=== PATIENT | male | born 1935 | race Caucasian/White ===

== ENCOUNTER 2021-10-21 16:09 | Emergency (ER) | payer MEDICARE, OTHER ==
[~2021-10-21] VITALS: Ht 180.3 cm; Wt 83.9 kg
[2021-10-21] MEDS ORDERED: TAMSULOSIN HCL0.4 M1 PO (16:50)
[2021-10-21] MEDS ORDERED: HYDCHL12.5 PO (16:50)
[2021-10-21] MEDS ORDERED: ATOR10 PO (16:50)
[2021-10-21] MEDS ORDERED: FINA5 PO (16:51)
[2021-10-21] MEDS ORDERED: TRAM50 PO (16:51)
[2021-10-21] MEDS ORDERED: Bisoprolol Fumar5 MG PO (16:52)
== END 2021-10-21 17:59 | disposition home or self-care (01) ==
LOC: ER 16:09
DX: S63.501A Unspecified sprain of right wrist, initial encounter (principal); S50.11XA Contusion of right forearm, initial encounter; E11.9 Type 2 diabetes mellitus without complications; W19.XXXA Unspecified fall, initial encounter
CPT/HCPCS: 73090; 99283-25

== ENCOUNTER → 2022-08-20 | Outpatient (CLI) | payer MEDICARE, OTHER ==
[~2022-08-20] MED LIST: ATOR10 PO; Bisoprolol Fumar5 MG PO; FINA5 PO; HYDCHL12.5 PO; TAMSULOSIN HCL0.4 M1 PO; TRAM50 PO
== END | disposition home or self-care (01) ==
LOC: LAB SHORT 09:21 → LAB 09:21
DX: L03.811 Cellulitis of head [any part, except face] (principal)
CPT/HCPCS: 87070; 87075; 87077; 87186; 87205

== ENCOUNTER 2022-08-27 00:36 | Day surgery (SDC) | payer MEDICARE, OTHER | END 2022-08-27 22:47 | disposition home or self-care (01) | LOC: WOUND 00:36 | DX: C44.42 Squamous cell carcinoma of skin of scalp and neck (principal); E11.9 Type 2 diabetes mellitus without complications | CPT/HCPCS: 11102; A9270; G0463 ==

== ENCOUNTER 2022-09-15 06:02 | Day surgery (SDC) | payer MEDICARE, OTHER | END 2022-09-15 22:59 | disposition home or self-care (01) | LOC: WOUND 06:02 | DX: S01.9 Open wound of unspecified part of head (principal); C44.42 Squamous cell carcinoma of skin of scalp and neck; E11.9 Type 2 diabetes mellitus without complications | CPT/HCPCS: A9270; G0463 ==

== ENCOUNTER 2022-09-22 01:49 | Day surgery (SDC) | payer MEDICARE, OTHER | END 2022-09-22 22:50 | disposition home or self-care (01) | LOC: WOUND 01:49 | DX: S01.80XA Unspecified open wound of other part of head, initial encounter (principal); X58.XXXA Exposure to other specified factors, initial encounter; C44.42 Squamous cell carcinoma of skin of scalp and neck | CPT/HCPCS: G0463 ==

== ENCOUNTER 2022-10-08 12:44 | Day surgery (SDC) | payer MEDICARE, OTHER | END 2022-10-08 23:29 | disposition home or self-care (01) | LOC: WOUND 12:44 | DX: C44.42 Squamous cell carcinoma of skin of scalp and neck (principal); N18.9 Chronic kidney disease, unspecified; S01.9 Open wound of unspecified part of head; X58.XXXD Exposure to other specified factors, subsequent encounter | CPT/HCPCS: A9270; G0463 ==

== ENCOUNTER → 2023-02-21 | Outpatient (CLI) | payer MEDICARE, OTHER | END | disposition home or self-care (01) | LOC: LAB HH 10:15 | DX: C44.42 Squamous cell carcinoma of skin of scalp and neck (principal); S01.01XD Laceration without foreign body of scalp, subsequent encounter | CPT/HCPCS: 87070; 87075; 87077; 87147; 87186; 87205 ==

== ENCOUNTER → 2023-05-19 | Outpatient (CLI) | payer MEDICARE, OTHER ==
[2023-05-19 09:13] LABS: BASOPHILS ABSOLUTE AUTO 0.05 K/mm3 (0.00-0.23); BASOPHILS PERCENT AUTO 1 % (0-2); EOSINOPHILS ABSOLUTE AUTO 0.34 K/mm3 (0.00-0.68); EOSINOPHILS PERCENT AUTO 4 % (0-6); Hematocrit 39.1 % (37.0-53.0); Hemoglobin 13.1 g/dL (13.5-17.5); IMMATURE GRAN ABSOLUTE AUTO 0.02 K/mm3 (0.00-0.10); IMMATURE GRAN PERCENT AUTO 0 % (0-1); LYMPHOCYTES ABSOLUTE AUTO 1.24 K/mm3 (0.84-5.20); LYMPHOCYTES PERCENT AUTO 14 % (21-46); MONOCYTES ABSOLUTE AUTO 0.72 K/mm3 (0.16-1.47); MONOCYTES PERCENT AUTO 8 % (4-13); Mean Corpuscular HGB 30.6 pg (26.0-34.0); Mean Corpuscular HGB Conc 33.5 g/dL (31.5-36.5); Mean Corpuscular Volume 91 fL (80-100); Mean Platelet Volume 9.9 fL (9.1-12.4); NEUTROPHILS PERCENT AUTO 74 % (41-73); Platelet Count 273 K/mm3 (150-400); RDW Coefficient Variation 12.9 % (11.7-14.2); RDW Standard Deviation 42.8 fL (35.1-46.3); Red Blood Cell Count 4.28 M/mm3 (4.30-5.90); White Blood Cell Count 9.17 K/mm3 (4.00-11.30)
[2023-05-19 09:31] LABS: Albumin, Blood 3.5 g/dL (3.4-5.0); Albumin/Globulin Ratio 1.2 (0.8-1.8); Bilirubin, Total 0.6 mg/dL (0.1-1.0); Bun/Creatinine Ratio 18.2 (12.0-20.0); Calcium, Blood 9.3 mg/dL (8.5-10.1); Creatinine, Blood 1.59 mg/dL (0.60-1.20); Potassium, Blood 4.7 mmol/L (3.5-5.5); Total Protein, Blood 6.5 g/dL (6.4-8.2)
== END ==
LOC: LAB SHORT 08:40 → LAB 08:40
PROVIDERS: Internal Medicine Hematology & Oncology
DX: C44.92 Squamous cell carcinoma of skin, unspecified (principal)
CPT/HCPCS: 80053; 85025

== ENCOUNTER → 2023-08-11 | Outpatient (CLI) | payer MEDICARE, OTHER ==
[2023-08-11 08:42] LABS: BASOPHILS ABSOLUTE AUTO 0.05 K/mm3 (0.00-0.23); BASOPHILS PERCENT AUTO 1 % (0-2); EOSINOPHILS ABSOLUTE AUTO 0.31 K/mm3 (0.00-0.68); EOSINOPHILS PERCENT AUTO 4 % (0-6); Hematocrit 40.3 % (37.0-53.0); Hemoglobin 13.5 g/dL (13.5-17.5); IMMATURE GRAN ABSOLUTE AUTO 0.01 K/mm3 (0.00-0.10); IMMATURE GRAN PERCENT AUTO 0 % (0-1); LYMPHOCYTES ABSOLUTE AUTO 1.29 K/mm3 (0.84-5.20); LYMPHOCYTES PERCENT AUTO 18 % (21-46); MONOCYTES ABSOLUTE AUTO 0.68 K/mm3 (0.16-1.47); MONOCYTES PERCENT AUTO 9 % (4-13); Mean Corpuscular HGB 30.8 pg (26.0-34.0); Mean Corpuscular HGB Conc 33.5 g/dL (31.5-36.5); Mean Corpuscular Volume 92 fL (80-100); Mean Platelet Volume 10.2 fL (9.1-12.4); NEUTROPHILS ABSOLUTE AUTO 5.05 K/mm3 (1.96-9.15); NEUTROPHILS PERCENT AUTO 68 % (41-73); Platelet Count 281 K/mm3 (150-400); RDW Coefficient Variation 12.5 % (11.7-14.2); RDW Standard Deviation 42.4 fL (35.1-46.3); Red Blood Cell Count 4.38 M/mm3 (4.30-5.90); White Blood Cell Count 7.39 K/mm3 (4.00-11.30)
[2023-08-11 09:02] LABS: Albumin, Blood 3.6 g/dL (3.4-5.0); Albumin/Globulin Ratio 1.1 (0.8-1.8); Bilirubin, Total 0.8 mg/dL (0.1-1.0); Bun/Creatinine Ratio 14.6 (12.0-20.0); Calcium, Blood 9.1 mg/dL (8.5-10.1); Creatinine, Blood 1.58 mg/dL (0.60-1.20); Globulin, Blood 3.2 g/dL (2.2-4.0); Potassium, Blood 4.4 mmol/L (3.5-5.5); Total Protein, Blood 6.8 g/dL (6.4-8.2)
== END ==
LOC: LAB SHORT 08:12 → LAB 08:12
PROVIDERS: Internal Medicine Hematology & Oncology
DX: C44.92 Squamous cell carcinoma of skin, unspecified (principal)
CPT/HCPCS: 80053; 85025

== ENCOUNTER → 2023-08-31 | Outpatient (CLI) | payer MEDICARE, OTHER ==
[2023-08-31 08:21] LABS: BASOPHILS ABSOLUTE AUTO 0.06 K/mm3 (0.00-0.23); BASOPHILS PERCENT AUTO 1 % (0-2); EOSINOPHILS ABSOLUTE AUTO 0.48 K/mm3 (0.00-0.68); EOSINOPHILS PERCENT AUTO 6 % (0-6); Hematocrit 41.1 % (37.0-53.0); Hemoglobin 13.5 g/dL (13.5-17.5); IMMATURE GRAN ABSOLUTE AUTO 0.02 K/mm3 (0.00-0.10); IMMATURE GRAN PERCENT AUTO 0 % (0-1); LYMPHOCYTES ABSOLUTE AUTO 1.63 K/mm3 (0.84-5.20); LYMPHOCYTES PERCENT AUTO 21 % (21-46); MONOCYTES ABSOLUTE AUTO 0.71 K/mm3 (0.16-1.47); MONOCYTES PERCENT AUTO 9 % (4-13); Mean Corpuscular HGB 30.8 pg (26.0-34.0); Mean Corpuscular HGB Conc 32.8 g/dL (31.5-36.5); Mean Corpuscular Volume 94 fL (80-100); Mean Platelet Volume 10.4 fL (9.1-12.4); NEUTROPHILS ABSOLUTE AUTO 4.98 K/mm3 (1.96-9.15); NEUTROPHILS PERCENT AUTO 63 % (41-73); Platelet Count 311 K/mm3 (150-400); RDW Coefficient Variation 12.4 % (11.7-14.2); RDW Standard Deviation 42.5 fL (35.1-46.3); Red Blood Cell Count 4.39 M/mm3 (4.30-5.90); White Blood Cell Count 7.88 K/mm3 (4.00-11.30)
[2023-08-31 08:45] LABS: Albumin, Blood 3.5 g/dL (3.4-5.0); Bilirubin, Total 0.5 mg/dL (0.1-1.0); Bun/Creatinine Ratio 17.8 (12.0-20.0); Calcium, Blood 9.1 mg/dL (8.5-10.1); Creatinine, Blood 1.52 mg/dL (0.60-1.20); Globulin, Blood 3.5 g/dL (2.2-4.0); Potassium, Blood 4.5 mmol/L (3.5-5.5)
== END | disposition home or self-care (01) ==
LOC: LAB 07:40 → LAB SHORT 07:40
PROVIDERS: Internal Medicine Hematology & Oncology
DX: C44.92 Squamous cell carcinoma of skin, unspecified (principal)
CPT/HCPCS: 80053; 85025

== ENCOUNTER → 2023-11-03 | Outpatient (CLI) | payer MEDICARE, OTHER ==
[2023-11-03 11:48] LABS: BASOPHILS ABSOLUTE AUTO 0.06 K/mm3 (0.00-0.23); BASOPHILS PERCENT AUTO 1 % (0-2); EOSINOPHILS ABSOLUTE AUTO 0.49 K/mm3 (0.00-0.68); EOSINOPHILS PERCENT AUTO 7 % (0-6); Hematocrit 42.2 % (37.0-53.0); Hemoglobin 14.3 g/dL (13.5-17.5); IMMATURE GRAN ABSOLUTE AUTO 0.01 K/mm3 (0.00-0.10); IMMATURE GRAN PERCENT AUTO 0 % (0-1); LYMPHOCYTES PERCENT AUTO 14 % (21-46); MONOCYTES ABSOLUTE AUTO 0.54 K/mm3 (0.16-1.47); MONOCYTES PERCENT AUTO 7 % (4-13); Mean Corpuscular HGB Conc 33.9 g/dL (31.5-36.5); Mean Corpuscular Volume 91 fL (80-100); Mean Platelet Volume 10.6 fL (9.1-12.4); NEUTROPHILS ABSOLUTE AUTO 5.29 K/mm3 (1.96-9.15); NEUTROPHILS PERCENT AUTO 72 % (41-73); Platelet Count 289 K/mm3 (150-400); Red Blood Cell Count 4.62 M/mm3 (4.30-5.90); White Blood Cell Count 7.39 K/mm3 (4.00-11.30)
[2023-11-03 11:51] LABS: Albumin, Blood 3.6 g/dL (3.4-5.0); Albumin/Globulin Ratio 1.1 (0.8-1.8); Bilirubin, Total 0.9 mg/dL (0.1-1.0); Bun/Creatinine Ratio 17.6 (12.0-20.0); Calcium, Blood 9.6 mg/dL (8.5-10.1); Creatinine, Blood 1.31 mg/dL (0.60-1.20); Globulin, Blood 3.4 g/dL (2.2-4.0); Potassium, Blood 4.2 mmol/L (3.5-5.5)
== END ==
LOC: LAB 09:15 → LAB SHORT 09:15
PROVIDERS: Internal Medicine Hematology & Oncology
DX: C44.92 Squamous cell carcinoma of skin, unspecified (principal)
CPT/HCPCS: 80053; 85025

== ENCOUNTER 2024-02-08 03:06 | Day surgery (SDC) | payer MEDICARE, OTHER | END 2024-02-08 22:40 | disposition home or self-care (01) | LOC: WOUND 03:06 | DX: C44.92 Squamous cell carcinoma of skin, unspecified (principal); E11.9 Type 2 diabetes mellitus without complications | CPT/HCPCS: A6213; G0463 ==

== ENCOUNTER 2024-02-15 04:33 | Day surgery (SDC) | payer MEDICARE, OTHER | END 2024-02-15 23:11 | disposition home or self-care (01) | LOC: WOUND 04:33 | DX: C44.42 Squamous cell carcinoma of skin of scalp and neck (principal); E11.9 Type 2 diabetes mellitus without complications | CPT/HCPCS: A6213; G0463 ==

== ENCOUNTER 2024-04-06 03:15 | Day surgery (SDC) | payer MEDICARE, OTHER | END 2024-04-06 23:11 | disposition home or self-care (01) | LOC: WOUND 03:15 | DX: S01.80XD Unspecified open wound of other part of head, subsequent encounter (principal); C44.92 Squamous cell carcinoma of skin, unspecified; E11.9 Type 2 diabetes mellitus without complications; X58.XXXD Exposure to other specified factors, subsequent encounter | CPT/HCPCS: A6213; G0463 ==

== ENCOUNTER 2024-04-11 03:21 | Day surgery (SDC) | payer MEDICARE, OTHER | END 2024-04-11 23:03 | disposition home or self-care (01) | LOC: WOUND 03:21 | DX: C44.92 Squamous cell carcinoma of skin, unspecified (principal); E11.9 Type 2 diabetes mellitus without complications | CPT/HCPCS: A6213; G0463 ==

== ENCOUNTER 2024-04-18 02:26 | Day surgery (SDC) | payer MEDICARE, OTHER | END 2024-04-18 22:49 | disposition home or self-care (01) | LOC: WOUND 02:26 | DX: S01.80XD Unspecified open wound of other part of head, subsequent encounter (principal); E11.9 Type 2 diabetes mellitus without complications; C44.92 Squamous cell carcinoma of skin, unspecified; X58.XXXD Exposure to other specified factors, subsequent encounter | CPT/HCPCS: A6213; G0463 ==

== ENCOUNTER 2024-05-02 01:43 | Day surgery (SDC) | payer MEDICARE, OTHER | END 2024-05-03 05:14 | disposition home or self-care (01) | LOC: WOUND 01:43 | DX: C44.42 Squamous cell carcinoma of skin of scalp and neck (principal); L98.492 Non-pressure chronic ulcer of skin of other sites with fat layer exposed; E11.9 Type 2 diabetes mellitus without complications | CPT/HCPCS: A6213; G0463 ==

== ENCOUNTER 2024-05-09 02:51 | Day surgery (SDC) | payer MEDICARE, OTHER | END 2024-05-09 22:56 | disposition home or self-care (01) | LOC: WOUND 02:51 | DX: S01.80XD Unspecified open wound of other part of head, subsequent encounter (principal); E11.9 Type 2 diabetes mellitus without complications; C44.92 Squamous cell carcinoma of skin, unspecified | CPT/HCPCS: G0463 ==

== ENCOUNTER 2024-05-30 05:41 | Day surgery (SDC) | payer MEDICARE, OTHER | END 2024-05-30 23:08 | disposition home or self-care (01) | LOC: WOUND 05:41 | DX: L98.492 Non-pressure chronic ulcer of skin of other sites with fat layer exposed (principal); E11.9 Type 2 diabetes mellitus without complications; C44.92 Squamous cell carcinoma of skin, unspecified | CPT/HCPCS: G0463 ==

== ENCOUNTER 2024-06-13 04:22 | Day surgery (SDC) | payer MEDICARE, OTHER | END 2024-06-13 22:43 | disposition home or self-care (01) | LOC: WOUND 04:22 | DX: L98.492 Non-pressure chronic ulcer of skin of other sites with fat layer exposed (principal); C44.92 Squamous cell carcinoma of skin, unspecified | CPT/HCPCS: G0463 ==

== ENCOUNTER 2024-07-11 02:25 | Day surgery (SDC) | payer MEDICARE, OTHER | END 2024-07-11 23:13 | disposition home or self-care (01) | LOC: WOUND 02:25 | DX: C44.42 Squamous cell carcinoma of skin of scalp and neck (principal); L98.492 Non-pressure chronic ulcer of skin of other sites with fat layer exposed | CPT/HCPCS: G0463 ==

== ENCOUNTER 2024-08-01 01:53 | Day surgery (SDC) | payer MEDICARE, OTHER | END 2024-08-01 23:10 | disposition home or self-care (01) | LOC: WOUND 01:53 | DX: S01.80XD Unspecified open wound of other part of head, subsequent encounter (principal); E11.9 Type 2 diabetes mellitus without complications | CPT/HCPCS: G0463 ==

== ENCOUNTER 2024-08-15 03:26 | Day surgery (SDC) | payer MEDICARE, OTHER | END 2024-08-15 23:00 | disposition home or self-care (01) | LOC: WOUND 03:26 | DX: C44.42 Squamous cell carcinoma of skin of scalp and neck (principal); E11.622 Type 2 diabetes mellitus with other skin ulcer; L98.492 Non-pressure chronic ulcer of skin of other sites with fat layer exposed | CPT/HCPCS: G0463 ==

== ENCOUNTER 2024-08-22 05:03 | Day surgery (SDC) | payer MEDICARE, OTHER | END 2024-08-22 23:00 | disposition home or self-care (01) | LOC: WOUND 05:03 | DX: S01.00XD Unspecified open wound of scalp, subsequent encounter (principal); E11.9 Type 2 diabetes mellitus without complications | CPT/HCPCS: G0463 ==

== ENCOUNTER 2024-09-19 03:43 | Day surgery (SDC) | payer MEDICARE, OTHER | END 2024-09-19 23:00 | disposition home or self-care (01) | LOC: WOUND 03:43 | DX: L98.492 Non-pressure chronic ulcer of skin of other sites with fat layer exposed (principal); C44.92 Squamous cell carcinoma of skin, unspecified | CPT/HCPCS: G0463 ==

== ENCOUNTER 2024-09-26 05:44 | Day surgery (SDC) | payer MEDICARE, OTHER | END 2024-09-26 23:00 | disposition home or self-care (01) | LOC: WOUND 05:44 | DX: C44.42 Squamous cell carcinoma of skin of scalp and neck (principal); E11.9 Type 2 diabetes mellitus without complications | CPT/HCPCS: G0463 ==

== ENCOUNTER 2024-10-12 04:45 | Day surgery (SDC) | payer MEDICARE, OTHER | END 2024-10-12 23:00 | disposition home or self-care (01) | LOC: WOUND 04:45 | DX: C44.42 Squamous cell carcinoma of skin of scalp and neck (principal); E11.9 Type 2 diabetes mellitus without complications | CPT/HCPCS: G0463 ==

== ENCOUNTER 2024-10-17 01:21 | Day surgery (SDC) | payer MEDICARE, OTHER | END 2024-10-17 23:00 | disposition home or self-care (01) | LOC: WOUND 01:21 | DX: C44.42 Squamous cell carcinoma of skin of scalp and neck (principal); E11.9 Type 2 diabetes mellitus without complications | CPT/HCPCS: G0463 ==

== ENCOUNTER 2024-10-24 06:24 | Day surgery (SDC) | payer MEDICARE, OTHER | END 2024-10-24 22:52 | disposition home or self-care (01) | LOC: WOUND 06:24 | DX: C44.42 Squamous cell carcinoma of skin of scalp and neck (principal); E11.9 Type 2 diabetes mellitus without complications | CPT/HCPCS: G0463 ==

== ENCOUNTER 2024-10-31 05:27 | Day surgery (SDC) | payer MEDICARE, OTHER | END 2024-10-31 23:00 | disposition home or self-care (01) | LOC: WOUND 05:27 | DX: C44.92 Squamous cell carcinoma of skin, unspecified (principal); L98.492 Non-pressure chronic ulcer of skin of other sites with fat layer exposed | CPT/HCPCS: G0463 ==

== ENCOUNTER 2024-11-07 03:18 | Day surgery (SDC) | payer MEDICARE, OTHER | END 2024-11-07 23:05 | disposition home or self-care (01) | LOC: WOUND 03:18 | DX: C44.42 Squamous cell carcinoma of skin of scalp and neck (principal); E11.9 Type 2 diabetes mellitus without complications | CPT/HCPCS: G0463 ==

== ENCOUNTER 2024-11-14 06:19 | Day surgery (SDC) | payer MEDICARE, OTHER | END 2024-11-14 23:00 | disposition home or self-care (01) | LOC: WOUND 06:19 | DX: C44.42 Squamous cell carcinoma of skin of scalp and neck (principal); E11.9 Type 2 diabetes mellitus without complications | CPT/HCPCS: G0463 ==

== ENCOUNTER 2024-11-21 02:13 | Day surgery (SDC) | payer MEDICARE, OTHER | END 2024-11-21 23:00 | disposition home or self-care (01) | LOC: WOUND 02:13 | DX: C44.42 Squamous cell carcinoma of skin of scalp and neck (principal); E11.9 Type 2 diabetes mellitus without complications | CPT/HCPCS: G0463 ==

== ENCOUNTER → 2024-12-05 | Day surgery (SDC) | payer MEDICARE, OTHER | LOC: WOUND 01:20 | DX: T81.31XD Disruption of external operation (surgical) wound, not elsewhere classified, subsequent encounter (principal); L98.492 Non-pressure chronic ulcer of skin of other sites with fat layer exposed; C44.92 Squamous cell carcinoma of skin, unspecified; Y83.8 Other surgical procedures as the cause of abnormal reaction of the patient, or of later complication, without mention of misadventure at the time of the procedure | CPT/HCPCS: G0463 ==

== ENCOUNTER 2024-12-12 00:58 | Day surgery (SDC) | payer MEDICARE, OTHER | END 2024-12-12 23:00 | disposition home or self-care (01) | LOC: WOUND 00:58 | DX: E11.622 Type 2 diabetes mellitus with other skin ulcer (principal); L98.492 Non-pressure chronic ulcer of skin of other sites with fat layer exposed; C44.92 Squamous cell carcinoma of skin, unspecified | CPT/HCPCS: G0463 ==

== ENCOUNTER 2024-12-19 02:41 | Day surgery (SDC) | payer MEDICARE, OTHER | END 2024-12-19 23:00 | disposition home or self-care (01) | LOC: WOUND 02:41 | DX: C44.42 Squamous cell carcinoma of skin of scalp and neck (principal); E11.9 Type 2 diabetes mellitus without complications | CPT/HCPCS: G0463 ==

== ENCOUNTER 2024-12-26 01:49 | Day surgery (SDC) | payer MEDICARE, OTHER | END 2024-12-26 23:00 | disposition home or self-care (01) | LOC: WOUND 01:49 | DX: L98.492 Non-pressure chronic ulcer of skin of other sites with fat layer exposed (principal); C44.92 Squamous cell carcinoma of skin, unspecified | CPT/HCPCS: G0463 ==

== ENCOUNTER 2025-01-02 04:36 | Day surgery (SDC) | payer MEDICARE, OTHER | END 2025-01-02 23:00 | disposition home or self-care (01) | LOC: WOUND 04:36 | DX: C44.42 Squamous cell carcinoma of skin of scalp and neck (principal); E11.9 Type 2 diabetes mellitus without complications | CPT/HCPCS: G0463 ==

== ENCOUNTER 2025-01-09 01:29 | Day surgery (SDC) | payer MEDICARE, OTHER | END 2025-01-09 23:00 | disposition home or self-care (01) | LOC: WOUND 01:29 | DX: L98.492 Non-pressure chronic ulcer of skin of other sites with fat layer exposed (principal); C44.92 Squamous cell carcinoma of skin, unspecified | CPT/HCPCS: G0463 ==

== ENCOUNTER → 2025-01-16 | Day surgery (SDC) | payer MEDICARE, OTHER | LOC: WOUND 03:06 | DX: E11.622 Type 2 diabetes mellitus with other skin ulcer (principal); L98.492 Non-pressure chronic ulcer of skin of other sites with fat layer exposed; C44.92 Squamous cell carcinoma of skin, unspecified | CPT/HCPCS: G0463 ==

== ENCOUNTER 2025-01-23 03:00 | Day surgery (SDC) | payer MEDICARE, OTHER | END 2025-01-23 23:00 | disposition home or self-care (01) | LOC: WOUND 03:00 | DX: L98.492 Non-pressure chronic ulcer of skin of other sites with fat layer exposed (principal); C44.92 Squamous cell carcinoma of skin, unspecified | CPT/HCPCS: G0463 ==

== ENCOUNTER 2025-01-30 01:53 | Day surgery (SDC) | payer MEDICARE, OTHER | END 2025-01-30 23:00 | LOC: WOUND 01:53 | DX: C44.42 Squamous cell carcinoma of skin of scalp and neck (principal); L98.492 Non-pressure chronic ulcer of skin of other sites with fat layer exposed | CPT/HCPCS: G0463 ==

== ENCOUNTER 2025-02-13 02:44 | Day surgery (SDC) | payer MEDICARE, OTHER | END 2025-02-13 23:00 | disposition home or self-care (01) | LOC: WOUND 02:44 | DX: L98.492 Non-pressure chronic ulcer of skin of other sites with fat layer exposed (principal); C44.42 Squamous cell carcinoma of skin of scalp and neck; E11.9 Type 2 diabetes mellitus without complications | CPT/HCPCS: G0463 ==

== ENCOUNTER 2025-02-20 03:19 | Day surgery (SDC) | payer MEDICARE, OTHER | END 2025-02-20 23:00 | disposition home or self-care (01) | LOC: WOUND 03:19 | DX: L98.492 Non-pressure chronic ulcer of skin of other sites with fat layer exposed (principal); C44.42 Squamous cell carcinoma of skin of scalp and neck; E11.9 Type 2 diabetes mellitus without complications | CPT/HCPCS: G0463 ==

== ENCOUNTER 2025-02-27 05:58 | Day surgery (SDC) | payer MEDICARE, OTHER | END 2025-02-27 23:00 | LOC: WOUND 05:58 | DX: L98.492 Non-pressure chronic ulcer of skin of other sites with fat layer exposed (principal); C44.92 Squamous cell carcinoma of skin, unspecified | CPT/HCPCS: G0463 ==

== ENCOUNTER 2025-04-10 03:16 | Day surgery (SDC) | payer MEDICARE, OTHER | END 2025-04-10 23:00 | disposition home or self-care (01) | LOC: WOUND 03:16 | DX: E11.622 Type 2 diabetes mellitus with other skin ulcer (principal); L98.492 Non-pressure chronic ulcer of skin of other sites with fat layer exposed; C44.92 Squamous cell carcinoma of skin, unspecified | CPT/HCPCS: G0463 ==

== ENCOUNTER 2025-04-24 03:51 | Day surgery (SDC) | payer MEDICARE, OTHER | END 2025-04-24 23:00 | disposition home or self-care (01) | LOC: WOUND 03:51 | DX: L98.492 Non-pressure chronic ulcer of skin of other sites with fat layer exposed (principal); C44.42 Squamous cell carcinoma of skin of scalp and neck | CPT/HCPCS: G0463 ==

== ENCOUNTER 2025-05-01 02:07 | Day surgery (SDC) | payer MEDICARE, OTHER | END 2025-05-01 23:00 | disposition home or self-care (01) | LOC: WOUND 02:07 | DX: L98.492 Non-pressure chronic ulcer of skin of other sites with fat layer exposed (principal); C44.42 Squamous cell carcinoma of skin of scalp and neck | CPT/HCPCS: G0463 ==

== ENCOUNTER 2025-05-08 04:00 | Day surgery (SDC) | payer MEDICARE, OTHER | END 2025-05-08 23:00 | disposition home or self-care (01) | LOC: WOUND 04:00 | DX: L98.492 Non-pressure chronic ulcer of skin of other sites with fat layer exposed (principal); C44.42 Squamous cell carcinoma of skin of scalp and neck | CPT/HCPCS: G0463 ==

== ENCOUNTER → 2025-05-15 | Day surgery (SDC) | payer MEDICARE, OTHER | END | disposition home or self-care (01) | LOC: WOUND | DX: L98.492 Non-pressure chronic ulcer of skin of other sites with fat layer exposed (principal); C44.42 Squamous cell carcinoma of skin of scalp and neck | CPT/HCPCS: G0463 ==

== ENCOUNTER 2025-05-29 07:50 | Day surgery (SDC) | payer MEDICARE, OTHER | END 2025-05-29 23:00 | disposition home or self-care (01) | LOC: WOUND 07:50 | DX: L98.492 Non-pressure chronic ulcer of skin of other sites with fat layer exposed (principal); C44.42 Squamous cell carcinoma of skin of scalp and neck | CPT/HCPCS: G0463 ==

== ENCOUNTER 2025-06-05 04:26 | Day surgery (SDC) | payer MEDICARE, OTHER | END 2025-06-05 23:00 | disposition home or self-care (01) | LOC: WOUND 04:26 | DX: C44.42 Squamous cell carcinoma of skin of scalp and neck (principal); E11.622 Type 2 diabetes mellitus with other skin ulcer; L98.492 Non-pressure chronic ulcer of skin of other sites with fat layer exposed | CPT/HCPCS: G0463 ==

== ENCOUNTER 2025-06-12 02:34 | Day surgery (SDC) | payer MEDICARE, OTHER | END 2025-06-12 23:00 | disposition home or self-care (01) | LOC: WOUND 02:34 | DX: L98.492 Non-pressure chronic ulcer of skin of other sites with fat layer exposed (principal); C44.42 Squamous cell carcinoma of skin of scalp and neck | CPT/HCPCS: G0463 ==

== ENCOUNTER → 2025-06-18 | Outpatient (CLI) | payer MEDICARE, OTHER ==
[2025-06-18 21:12] LABS: Protein, Urine Quantitative 10.7 mg/dL (0.0-11.9)
[2025-06-18 21:13] LABS: Microalbumin, Urine Quant. 19.7 mg/L (0.000-20.000)
== END ==
LOC: LAB 13:00 → LAB SHORT 13:00 → LAB FUT 06-17 13:10
PROVIDERS: Internal Medicine Nephrology
DX: N18.30 Chronic kidney disease, stage 3 unspecified (principal); D63.1 Anemia in chronic kidney disease; N25.81 Secondary hyperparathyroidism of renal origin; E78.00 Pure hypercholesterolemia, unspecified; R76.9 Abnormal immunological finding in serum, unspecified; R94.5 Abnormal results of liver function studies; G60.9 Hereditary and idiopathic neuropathy, unspecified
CPT/HCPCS: 81050; 82043; 82570; 84156

== ENCOUNTER 2025-06-19 02:10 | Day surgery (SDC) | payer MEDICARE, OTHER | END 2025-06-19 23:00 | disposition home or self-care (01) | LOC: WOUND 02:10 | DX: C44.42 Squamous cell carcinoma of skin of scalp and neck (principal); E11.9 Type 2 diabetes mellitus without complications | CPT/HCPCS: G0463 ==

== ENCOUNTER 2025-06-26 02:32 | Day surgery (SDC) | payer MEDICARE, OTHER | END 2025-06-26 23:00 | disposition home or self-care (01) | LOC: WOUND 02:32 | DX: E11.622 Type 2 diabetes mellitus with other skin ulcer (principal); L98.492 Non-pressure chronic ulcer of skin of other sites with fat layer exposed; C44.42 Squamous cell carcinoma of skin of scalp and neck | CPT/HCPCS: G0463 ==

== ENCOUNTER 2025-07-31 03:24 | Day surgery (SDC) | payer MEDICARE, OTHER | END 2025-07-31 23:00 | disposition home or self-care (01) | LOC: WOUND 03:24 | DX: C44.42 Squamous cell carcinoma of skin of scalp and neck (principal); E11.9 Type 2 diabetes mellitus without complications | CPT/HCPCS: G0463 ==

== ENCOUNTER 2025-08-07 00:50 | Day surgery (SDC) | payer MEDICARE, OTHER | END 2025-08-07 23:00 | disposition home or self-care (01) | LOC: WOUND 00:50 | DX: C44.42 Squamous cell carcinoma of skin of scalp and neck (principal); E11.9 Type 2 diabetes mellitus without complications | CPT/HCPCS: G0463 ==

== ENCOUNTER 2025-08-14 01:39 | Day surgery (SDC) | payer MEDICARE, OTHER | END 2025-08-14 23:00 | disposition home or self-care (01) | LOC: WOUND 01:39 | DX: C44.42 Squamous cell carcinoma of skin of scalp and neck (principal); I10 Essential (primary) hypertension; E11.9 Type 2 diabetes mellitus without complications | CPT/HCPCS: G0463 ==

== ENCOUNTER 2025-08-21 10:03 | Day surgery (SDC) | payer MEDICARE, OTHER | END 2025-08-21 23:00 | disposition home or self-care (01) | LOC: WOUND 10:03 | DX: C44.42 Squamous cell carcinoma of skin of scalp and neck (principal); E11.9 Type 2 diabetes mellitus without complications | CPT/HCPCS: G0463 ==

== ENCOUNTER 2025-09-11 00:27 | Day surgery (SDC) | payer MEDICARE, OTHER | END 2025-09-11 23:28 | disposition home or self-care (01) | LOC: WOUND 00:27 | DX: L98.492 Non-pressure chronic ulcer of skin of other sites with fat layer exposed (principal); C44.92 Squamous cell carcinoma of skin, unspecified | CPT/HCPCS: G0463 ==

== ENCOUNTER 2025-09-25 01:21 | Day surgery (SDC) | payer MEDICARE, OTHER | END 2025-09-25 23:52 | disposition home or self-care (01) | LOC: WOUND 01:21 | DX: L98.492 Non-pressure chronic ulcer of skin of other sites with fat layer exposed (principal); C44.92 Squamous cell carcinoma of skin, unspecified; I95.9 Hypotension, unspecified; E11.9 Type 2 diabetes mellitus without complications | CPT/HCPCS: G0463 ==